=== PATIENT | male | born 1990 | race Caucasian/White ===

== ENCOUNTER 2023-08-22 12:17 | Inpatient (IN) | payer OTHER ==
[~2023-08-22] VITALS: Ht 167.6 cm; Wt 109.1 kg
[2023-08-22 13:19] LABS: BASOPHILS % (AUTO) 0.5 % (0.0-2.0); EOSINOPHILS % (AUTO) 1.8 % (1.0-6.0); HEMATOCRIT 28.8 % (41-53); HEMOGLOBIN 9.9 g/dL (13.5-17.5); LYMPHOCYTES # (AUTO) 1.2 K/uL (1.0-4.8); MEAN CORPUSCULAR HEMOGLOBIN 26.9 pg (26.0-34.0); MEAN CORPUSCULAR HGB CONC 34.4 G/dL (31.0-37.0); MEAN CORPUSCULAR VOLUME 78 fL (80-100); MONOCYTES # (AUTO) 0.5 K/uL (0.1-1.0); MONOCYTES % (AUTO) 6.5 % (2.0-9.0); NEUTROPHILS # (AUTO) 5.8 K/uL (1.8-7.7); NEUTROPHILS % (AUTO) 75.2 % (40.0-70.0); PLATELET COUNT (AUTO) 398 K/uL (150-450); RED BLOOD CELL COUNT(AUTO) 3.67 MIL/uL (4.50-5.90); RED CELL DISTRIBUTION WIDTH 16.1 % (11.5-14.5); WHITE BLOOD COUNT (AUTO) 7.7 K/uL (4.5-11.0)
[2023-08-22 13:26] LABS: ANION GAP 6 mmol/L (8-16); CALCIUM, TOTAL 8.9 mg/dL (8.8-10.5); CARBON DIOXIDE 27 mmol/L (22-29); CHLORIDE 102 mmol/L (98-107); GLOMERULAR FILTR. RATE CALC > 60 mL/min (>60); GLUCOSE,RANDOM 101 mg/dL (70-110); POTASSIUM 4.2 mmol/L (3.5-5.1); SODIUM SERUM 135 mmol/L (136-145); UREA NITROGEN, BLOOD 15 mg/dL (7-18)
[2023-08-22 13:35] LABS: ALCOHOL, BLOOD (SERUM) < 3 mg/dL (0-10)
[2023-08-22 13:41] LABS: COVID AG,FIA SOURCE NASAL SWAB
[2023-08-22 13:51] LABS: ALANINE AMINOTRANSFERASE 40 U/L (12-78); ALBUMIN 2.6 g/dL (3.4-5.0); ALKALINE PHOSPHATASE 195 U/L (46-116); ASPARTATE AMINOTRANSFERASE 22 U/L (15-37); BILIRUBIN,TOTAL 0.2 mg/dL (0.1-1.0); CREATINE KINASE, TOTAL ONLY 134 U/L (39-308); TOTAL PROTEIN, SERUM 8.3 g/dL (6.4-8.2)
[2023-08-22 14:01] LABS: SARS-COV2 (COVID) ANTIGEN,FIA Negative (Negative)
[2023-08-22] MEDS ORDERED: DIAZEPAM 5 MG/ML 2 ML SYRINGE IVP ONE (14:15)
[2023-08-22] MEDS ORDERED: DICYCLOMINE HCL 10 MG CAPSULE PO PRN (14:30)
[2023-08-22] MEDS ORDERED: METOCLOPRAMIDE HCL 5 MG/ML 2 ML VIAL IVP PRN (14:30)
[2023-08-22] MEDS ORDERED: LOPERAMIDE HCL 2 MG CAPSULE PO PRN (14:30)
[2023-08-22] MEDS ORDERED: LORazepam 2 MG/ML VIAL IVP PRN (14:30)
[2023-08-22 16:11] VITALS: BP 127/84; PULSE 81; RESP 20; TEMP 98.7
[2023-08-22] MEDS ORDERED: INFLUENZA VIRUS VACCINE QVS 2023-24 (6MO+)/PF 60 MCG/0.5 ML SYRINGE IM. ONE (17:30)
[2023-08-22] MEDS: TEMAZEPAM 15 MG CAPSULE PO SCH (20:06)
[2023-08-22 20:54] VITALS: BP 135/77; PULSE 84; RESP 18; TEMP 98.6
[2023-08-23 01:57] LABS: APPEARANCE,URINE CLEAR (CLEAR); BILIRUBIN,URINE NEGATIVE (NEGATIVE); COLOR,URINE LIGHT YELLOW (YELLOW); GLUCOSE, URINE (UA) NEGATIVE (NEGATIVE); KETONES,URINE NEGATIVE (NEGATIVE); LEUKOCYTE ESTERASE ,URINE NEGATIVE (NEGATIVE); NITRATE,URINE NEGATIVE (NEGATIVE); OCCULT BLOOD,URINE SMALL (NEGATIVE); PROTEIN,URINE NEGATIVE (NEGATIVE); SPECIFIC GRAVITIY, URINE 1.015 (1.003-1.030); UROBILINOGEN,URINE <=1.0 mg/dL (<=1.0)
[2023-08-23 02:01] LABS: AMPHET/METH SCREEN,URINE POSITIVE (NEGATIVE); BARBITURATE SCREEN, URINE NEGATIVE (NEGATIVE); BENZODIAZEPINES SCREEN,URINE POSITIVE (NEGATIVE); CANNABINOID SCREEN,URINE POSITIVE (NEGATIVE); COCAINE SCREEN,URINE NEGATIVE (NEGATIVE); METHADONE SCREEN, URINE NEGATIVE (NEGATIVE); OPIATE SCREEN,URINE NEGATIVE (NEGATIVE); PHENCYCLIDINE SCREEN,URINE NEGATIVE (NEGATIVE)
[2023-08-23 02:03] LABS: ALCOHOL, URINE DRUG SCREEN NEGATIVE (NEGATIVE)
[2023-08-23 02:18] LABS: BACTERIA,URINE None Seen /HPF (None Seen); RBC,URINE 0-2 /HPF (0-2); SQUAMOUS EPITHELIAL CELL,UR None Seen /LPF (None Seen); WBC,URINE None Seen /HPF (0-5)
[2023-08-23 04:27] VITALS: BP 131/92; PULSE 84; RESP 18; TEMP 98.3
[2023-08-23 08:48] VITALS: BP 142/89; PULSE 89; RESP 19; TEMP 97.8
[2023-08-23 16:22] VITALS: BP 130/75; PULSE 78; RESP 20; TEMP 98.7
[2023-08-23 20:01] VITALS: BP 141/85; PULSE 85; RESP 20; TEMP 98.3
[2023-08-23] MEDS: TEMAZEPAM 15 MG CAPSULE PO SCH (21:00)
[2023-08-24 04:20] VITALS: BP 129/75; PULSE 78; RESP 20; TEMP 98.4
[2023-08-24 10:19] VITALS: BP 141/86; PULSE 86; RESP 20; TEMP 97.5
[2023-08-24 20:09] VITALS: BP 143/80; PULSE 88; RESP 20; TEMP 97.6
[2023-08-24] MEDS: TEMAZEPAM 15 MG CAPSULE PO SCH (20:09)
[2023-08-25 04:34] VITALS: BP 140/75; PULSE 70; RESP 20; TEMP 98.5
[2023-08-25] MEDS: MULTIVITAMINS WITH MINERALS, THERAPEUTIC TABLET PO SCH (07:54)
[2023-08-25 08:04] VITALS: BP 140/98; PULSE 87; RESP 20; TEMP 98.4
[2023-08-25 14:28] LABS: EOSINOPHILS % (AUTO) 1.6 % (1.0-6.0); HEMATOCRIT 36.7 % (41-53); HEMOGLOBIN 12.5 g/dL (13.5-17.5); LYMPHOCYTES # (AUTO) 1.1 K/uL (1.0-4.8); LYMPHOCYTES % (AUTO) 14.5 % (22.0-44.0); MEAN CORPUSCULAR HEMOGLOBIN 26.6 pg (26.0-34.0); MEAN CORPUSCULAR VOLUME 78 fL (80-100); MONOCYTES # (AUTO) 0.4 K/uL (0.1-1.0); MONOCYTES % (AUTO) 5.1 % (2.0-9.0); NEUTROPHILS % (AUTO) 77.8 % (40.0-70.0); PLATELET COUNT (AUTO) 520 K/uL (150-450); RED BLOOD CELL COUNT(AUTO) 4.69 MIL/uL (4.50-5.90); RED CELL DISTRIBUTION WIDTH 16.1 % (11.5-14.5); WHITE BLOOD COUNT (AUTO) 7.7 K/uL (4.5-11.0)
[2023-08-25 15:15] VITALS: BP 138/86; PULSE 78; RESP 20; TEMP 97.8
[2023-08-25 19:26] VITALS: BP 128/86; PULSE 97; RESP 20; TEMP 98.2
[2023-08-25] MEDS: TEMAZEPAM 15 MG CAPSULE PO SCH (20:02)
[2023-08-26 05:09] VITALS: BP 139/86; PULSE 83; RESP 20; TEMP 97.6
[2023-08-26] MEDS: MULTIVITAMINS WITH MINERALS, THERAPEUTIC TABLET PO SCH (08:20)
[2023-08-26 08:54] VITALS: BP 128/91; PULSE 87; RESP 20; TEMP 97.5
[2023-08-26] MEDS ORDERED: ACETAMINOPHEN 325 MG TABLET PO PRN (11:15)
[2023-08-26 12:13] LABS: TROPONIN I-HIGH SENSITIVITY 36 ng/L (<76)
[2023-08-26 19:45] VITALS: BP 119/63; PULSE 95; RESP 20; TEMP 98.4
[2023-08-26] MEDS: TEMAZEPAM 15 MG CAPSULE PO SCH (20:15)
[2023-08-27 05:43] VITALS: BP 121/74; PULSE 89; RESP 20; TEMP 98.1
[2023-08-27 08:00] VITALS: BP 144/92; PULSE 85; RESP 20; TEMP 97.6
[2023-08-27] MEDS: MULTIVITAMINS WITH MINERALS, THERAPEUTIC TABLET PO SCH (08:08)
[2023-08-27 15:30] VITALS: BP 124/77; PULSE 85; RESP 20; TEMP 98
== END 2023-08-27 18:00 | DRG 897 ==
LOC: EMS 12:18 → 6S 13:22
PROVIDERS: ADMIT Internal Medicine; ATTEND Internal Medicine
DX: F11.13 Opioid abuse with withdrawal (principal); E87.1 Hypo-osmolality and hyponatremia; D64.9 Anemia, unspecified; E66.9 Obesity, unspecified; F17.210 Nicotine dependence, cigarettes, uncomplicated; Z20.822 Contact with and (suspected) exposure to COVID-19; I10 Essential (primary) hypertension; F15.10 Other stimulant abuse, uncomplicated; Z91.030 Bee allergy status; Z68.38 Body mass index [BMI] 38.0-38.9, adult
CPT/HCPCS: 80053; 80307; 81001; 82550; 84484; 85025; 90686; 93005; 99285; G0480

== ENCOUNTER 2024-06-08 22:23 | Inpatient (IN) | payer OTHER ==
[~2024-06-08] VITALS: Ht 167.6 cm; Wt 100.0 kg
[2024-06-09 00:26] LABS: ANION GAP 13 mmol/L (8-16); CALCIUM, TOTAL 9.3 mg/dL (8.8-10.5); CARBON DIOXIDE 24 mmol/L (22-29); CHLORIDE 101 mmol/L (98-107); CREATININE 0.94 mg/dL (0.60-1.30); GLOMERULAR FILTR. RATE CALC > 60 mL/min (>60); GLUCOSE,RANDOM 98 mg/dL (70-110); POTASSIUM 3.7 mmol/L (3.5-5.1); SODIUM SERUM 138 mmol/L (136-145); UREA NITROGEN, BLOOD 9 mg/dL (7-18)
[2024-06-09] MEDS ORDERED: METOCLOPRAMIDE HCL 5 MG/ML 2 ML VIAL IVP PRN (00:30)
[2024-06-09] MEDS ORDERED: LOPERAMIDE HCL 2 MG CAPSULE PO PRN (00:30)
[2024-06-09 00:39] LABS: BASOPHILS % (AUTO) 0.8 % (0.0-2.0); EOSINOPHILS % (AUTO) 1.8 % (1.0-6.0); HEMATOCRIT 40.8 % (41-53); HEMOGLOBIN 14.1 g/dL (13.5-17.5); LYMPHOCYTES # (AUTO) 2.2 K/uL (1.0-4.8); LYMPHOCYTES % (AUTO) 29.4 % (22.0-44.0); MEAN CORPUSCULAR HEMOGLOBIN 27.5 pg (26.0-34.0); MEAN CORPUSCULAR HGB CONC 34.4 G/dL (31.0-37.0); MEAN CORPUSCULAR VOLUME 80 fL (80-100); MONOCYTES # (AUTO) 0.6 K/uL (0.1-1.0); NEUTROPHILS # (AUTO) 4.5 K/uL (1.8-7.7); PLATELET COUNT (AUTO) 304 K/uL (150-450); RED BLOOD CELL COUNT(AUTO) 5.11 MIL/uL (4.50-5.90); RED CELL DISTRIBUTION WIDTH 13.3 % (11.5-14.5); WHITE BLOOD COUNT (AUTO) 7.5 K/uL (4.5-11.0)
[2024-06-09 00:56] LABS: COVID AG,FIA SOURCE NASAL SWAB
[2024-06-09 01:03] LABS: ALCOHOL, BLOOD (SERUM) < 3 mg/dL (0-10)
[2024-06-09 01:07] LABS: SARS-COV2 (COVID) ANTIGEN,FIA Negative (Negative)
[2024-06-09] MEDS: LORazepam 2 MG/ML VIAL IVP PRN (01:39)
[2024-06-09 03:30] VITALS: BP 141/91; PULSE 61; RESP 20; TEMP 98.4; O2SAT 100
[2024-06-09 08:31] VITALS: BP 152/98; PULSE 74; RESP 18; TEMP 97.8; O2SAT 95
[2024-06-09] MEDS: SODIUM CHLORIDE 0.9% 1,000 ML IV ONE (12:03)
[2024-06-09 12:22] LABS: ALCOHOL, URINE DRUG SCREEN NEGATIVE (NEGATIVE); AMPHET/METH SCREEN,URINE NEGATIVE (NEGATIVE); BARBITURATE SCREEN, URINE NEGATIVE (NEGATIVE); BENZODIAZEPINES SCREEN,URINE NEGATIVE (NEGATIVE); CANNABINOID SCREEN,URINE POSITIVE (NEGATIVE); COCAINE SCREEN,URINE NEGATIVE (NEGATIVE); METHADONE SCREEN, URINE NEGATIVE (NEGATIVE); OPIATE SCREEN,URINE NEGATIVE (NEGATIVE); PHENCYCLIDINE SCREEN,URINE NEGATIVE (NEGATIVE)
[2024-06-09 15:46] VITALS: BP 156/88; PULSE 69; RESP 18; TEMP 97.9; O2SAT 95
[2024-06-09 20:00] VITALS: BP 144/98; PULSE 83; RESP 19; TEMP 98.5; O2SAT 98
[2024-06-09] MEDS: TEMAZEPAM 15 MG CAPSULE PO SCH (20:52)
[2024-06-10 04:00] VITALS: BP 124/79; PULSE 73; RESP 18; TEMP 98.6; O2SAT 97
[2024-06-10 07:59] VITALS: BP 132/93; PULSE 77; RESP 20; TEMP 97.5; O2SAT 96
[2024-06-10] MEDS: DICYCLOMINE HCL 10 MG CAPSULE PO PRN (08:17)
[2024-06-10 12:07] LABS: EOSINOPHILS % (AUTO) 1.1 % (1.0-6.0); HEMOGLOBIN 15.4 g/dL (13.5-17.5); LYMPHOCYTES # (AUTO) 1.8 K/uL (1.0-4.8); LYMPHOCYTES % (AUTO) 22.2 % (22.0-44.0); MEAN CORPUSCULAR HEMOGLOBIN 27.5 pg (26.0-34.0); MEAN CORPUSCULAR HGB CONC 34.3 G/dL (31.0-37.0); MEAN CORPUSCULAR VOLUME 80 fL (80-100); MONOCYTES # (AUTO) 0.4 K/uL (0.1-1.0); MONOCYTES % (AUTO) 5.4 % (2.0-9.0); NEUTROPHILS # (AUTO) 5.6 K/uL (1.8-7.7); NEUTROPHILS % (AUTO) 70.3 % (40.0-70.0); PLATELET COUNT (AUTO) 309 K/uL (150-450); RED BLOOD CELL COUNT(AUTO) 5.61 MIL/uL (4.50-5.90); RED CELL DISTRIBUTION WIDTH 13.4 % (11.5-14.5); WHITE BLOOD COUNT (AUTO) 7.9 K/uL (4.5-11.0)
[2024-06-10 12:13] LABS: ANION GAP 10 mmol/L (8-16); CALCIUM, TOTAL 9.4 mg/dL (8.8-10.5); CARBON DIOXIDE 25 mmol/L (22-29); CHLORIDE 102 mmol/L (98-107); CREATININE 0.81 mg/dL (0.60-1.30); GLOMERULAR FILTR. RATE CALC > 60 mL/min (>60); GLUCOSE,RANDOM 91 mg/dL (70-110); POTASSIUM 4.3 mmol/L (3.5-5.1); SODIUM SERUM 137 mmol/L (136-145); UREA NITROGEN, BLOOD 12 mg/dL (7-18)
[2024-06-10] MEDS: LORazepam 2 MG/ML VIAL IM PRN (18:25)
[2024-06-10 19:48] VITALS: BP 138/73; PULSE 82; RESP 18; TEMP 98.2; O2SAT 96
[2024-06-10] MEDS ORDERED: METOCLOPRAMIDE HCL 5 MG TABLET PO PRN (20:00)
[2024-06-10] MEDS: BUPRENORPHINE HCL/NALOXONE HCL 8-2 MG SUBLINGUAL TABLET SL SCH (20:09)
[2024-06-11 04:27] VITALS: BP 149/86; PULSE 69; RESP 18; TEMP 98.5; O2SAT 96
[2024-06-11 07:52] LABS: ANION GAP 9 mmol/L (8-16); CALCIUM, TOTAL 9.1 mg/dL (8.8-10.5); CARBON DIOXIDE 23 mmol/L (22-29); CHLORIDE 103 mmol/L (98-107); CREATININE 0.79 mg/dL (0.60-1.30); GLOMERULAR FILTR. RATE CALC > 60 mL/min (>60); GLUCOSE,RANDOM 91 mg/dL (70-110); POTASSIUM 3.8 mmol/L (3.5-5.1); SODIUM SERUM 135 mmol/L (136-145); UREA NITROGEN, BLOOD 13 mg/dL (7-18)
[2024-06-11 08:01] LABS: BASOPHILS % (AUTO) 0.7 % (0.0-2.0); EOSINOPHILS % (AUTO) 2.5 % (1.0-6.0); HEMATOCRIT 44.8 % (41-53); HEMOGLOBIN 15.4 g/dL (13.5-17.5); LYMPHOCYTES # (AUTO) 1.8 K/uL (1.0-4.8); LYMPHOCYTES % (AUTO) 20.3 % (22.0-44.0); MEAN CORPUSCULAR HEMOGLOBIN 27.5 pg (26.0-34.0); MEAN CORPUSCULAR HGB CONC 34.3 G/dL (31.0-37.0); MEAN CORPUSCULAR VOLUME 80 fL (80-100); MONOCYTES # (AUTO) 0.5 K/uL (0.1-1.0); MONOCYTES % (AUTO) 5.6 % (2.0-9.0); NEUTROPHILS # (AUTO) 6.1 K/uL (1.8-7.7); NEUTROPHILS % (AUTO) 70.9 % (40.0-70.0); PLATELET COUNT (AUTO) 303 K/uL (150-450); RED BLOOD CELL COUNT(AUTO) 5.59 MIL/uL (4.50-5.90); RED CELL DISTRIBUTION WIDTH 13.7 % (11.5-14.5); WHITE BLOOD COUNT (AUTO) 8.6 K/uL (4.5-11.0)
[2024-06-11] MEDS: HydrOXYzine HCL 25 MG TABLET PO PRN (14:09)
[2024-06-11 16:12] VITALS: BP 135/82; PULSE 69; RESP 18; TEMP 97.7; O2SAT 98
[2024-06-11 20:00] VITALS: BP 125/79; PULSE 88; RESP 20; TEMP 98; O2SAT 96
[2024-06-12 04:00] VITALS: BP 135/75; PULSE 69; RESP 18; TEMP 98; O2SAT 96
[2024-06-12 07:10] LABS: ANION GAP 11 mmol/L (8-16); CALCIUM, TOTAL 9.1 mg/dL (8.8-10.5); CARBON DIOXIDE 24 mmol/L (22-29); CHLORIDE 103 mmol/L (98-107); CREATININE 0.82 mg/dL (0.60-1.30); GLOMERULAR FILTR. RATE CALC > 60 mL/min (>60); GLUCOSE,RANDOM 90 mg/dL (70-110); POTASSIUM 3.9 mmol/L (3.5-5.1); SODIUM SERUM 138 mmol/L (136-145); UREA NITROGEN, BLOOD 14 mg/dL (7-18)
[2024-06-12 07:41] LABS: BASOPHILS % (AUTO) 0.8 % (0.0-2.0); HEMATOCRIT 46.7 % (41-53); HEMOGLOBIN 15.9 g/dL (13.5-17.5); LYMPHOCYTES # (AUTO) 1.8 K/uL (1.0-4.8); LYMPHOCYTES % (AUTO) 24.1 % (22.0-44.0); MEAN CORPUSCULAR HEMOGLOBIN 27.6 pg (26.0-34.0); MEAN CORPUSCULAR VOLUME 81 fL (80-100); MONOCYTES # (AUTO) 0.5 K/uL (0.1-1.0); MONOCYTES % (AUTO) 6.3 % (2.0-9.0); NEUTROPHILS % (AUTO) 65.8 % (40.0-70.0); PLATELET COUNT (AUTO) 311 K/uL (150-450); RED BLOOD CELL COUNT(AUTO) 5.76 MIL/uL (4.50-5.90); RED CELL DISTRIBUTION WIDTH 13.6 % (11.5-14.5); WHITE BLOOD COUNT (AUTO) 7.6 K/uL (4.5-11.0)
[2024-06-12 07:48] VITALS: BP 132/80; PULSE 68; RESP 19; TEMP 98.5; O2SAT 100
[2024-06-12] MEDS ORDERED: HYDR-4527 PO (11:14)
== END 2024-06-12 19:20 | DRG 897 ==
LOC: EMS 22:23 → EDH 06-09 01:07 → 6S 06-09 03:09
PROVIDERS: ADMIT Internal Medicine; ATTEND Internal Medicine
PROC: HZ2ZZZZ Detoxification Services for Substance Abuse Treatment (ICD-10-PCS; principal; 2024-06-09)
DX: F11.13 Opioid abuse with withdrawal (principal); I10 Essential (primary) hypertension; Z20.822 Contact with and (suspected) exposure to COVID-19; F41.9 Anxiety disorder, unspecified; F17.210 Nicotine dependence, cigarettes, uncomplicated; Z91.030 Bee allergy status
CPT/HCPCS: 80048; 80307; 85025; 99285; G0480; J2060; J7030

== ENCOUNTER 2024-07-02 21:10 | Inpatient (IN) | payer OTHER ==
[~2024-07-02] VITALS: Ht 175.3 cm; Wt 95.5 kg
[~2024-07-02 21:10] MED LIST: HYDR-4527 PO
[2024-07-03] MEDS ORDERED: BUPR1FIL3 SL (01:50)
[2024-07-03] MEDS ORDERED: BUPRENORPHINE HCL/NALOXONE HCL 8-2 MG SUBLINGUAL TABLET SL ONE (02:00)
[2024-07-03] MEDS ORDERED: ACET-2247 PO (02:08)
[2024-07-03] MEDS ORDERED: LISI-894 PO (02:08)
[2024-07-03] MEDS ORDERED: ONDA-104 PO (02:08)
[2024-07-03] MEDS: LORazepam 2 MG TABLET PO ONE (02:24)
[2024-07-03] MEDS: HydrOXYzine PAMOATE 50 MG CAPSULE PO ONE (02:24)
[2024-07-03] MEDS ORDERED: ONDANSETRON HCL 4 MG/2 ML VIAL IVP PRN (02:45)
[2024-07-03] MEDS: SODIUM CHLORIDE 0.9% 1,000 ML IV ONE (02:45)
[2024-07-03] MEDS ORDERED: ACETAMINOPHEN 325 MG TABLET PO PRN (02:45)
[2024-07-03] MEDS ORDERED: MAGNESIUM HYDROXIDE SUSPENSION 30 ML UDCUP PO PRN (02:45)
[2024-07-03] MEDS ORDERED: ZOLPIDEM TARTRATE 5 MG TABLET PO PRN (02:45)
[2024-07-03 06:35] LABS: APPEARANCE,URINE CLEAR (CLEAR); BILIRUBIN,URINE NEGATIVE (NEGATIVE); COLOR,URINE LIGHT YELLOW (YELLOW); GLUCOSE, URINE (UA) NEGATIVE (NEGATIVE); KETONES,URINE NEGATIVE (NEGATIVE); LEUKOCYTE ESTERASE ,URINE TRACE (NEGATIVE); NITRATE,URINE NEGATIVE (NEGATIVE); OCCULT BLOOD,URINE NEGATIVE (NEGATIVE); PH,URINE 5.5 (5.0-8.0); PROTEIN,URINE NEGATIVE (NEGATIVE); SPECIFIC GRAVITIY, URINE 1.025 (1.003-1.030); UROBILINOGEN,URINE <=1.0 mg/dL (<=1.0)
[2024-07-03 06:36] VITALS: BP 127/85; PULSE 83; RESP 19; TEMP 97.8; O2SAT 97
[2024-07-03 06:40] LABS: ALCOHOL, URINE DRUG SCREEN NEGATIVE (NEGATIVE); AMPHET/METH SCREEN,URINE NEGATIVE (NEGATIVE); BARBITURATE SCREEN, URINE NEGATIVE (NEGATIVE); BENZODIAZEPINES SCREEN,URINE NEGATIVE (NEGATIVE); CANNABINOID SCREEN,URINE POSITIVE (NEGATIVE); COCAINE SCREEN,URINE NEGATIVE (NEGATIVE); METHADONE SCREEN, URINE NEGATIVE (NEGATIVE); OPIATE SCREEN,URINE NEGATIVE (NEGATIVE); PHENCYCLIDINE SCREEN,URINE NEGATIVE (NEGATIVE)
[2024-07-03 06:48] LABS: BACTERIA,URINE Few /HPF (None Seen); RBC,URINE None Seen /HPF (0-2)
[2024-07-03 07:24] LABS: PH,URINE DRUG SCREEN 5.5 (5.0-8.0)
[2024-07-03 08:29] VITALS: BP 118/68; PULSE 71; RESP 19; TEMP 98; O2SAT 97
[2024-07-03] MEDS: FAMOTIDINE 20 MG TABLET PO SCH (09:21)
[2024-07-03] MEDS: LORazepam 2 MG/ML VIAL IVP PRN (09:23)
[2024-07-03 09:31] LABS: BASOPHILS % (AUTO) 0.7 % (0.0-2.0); HEMATOCRIT 42.3 % (41-53); HEMOGLOBIN 14.1 g/dL (13.5-17.5); LYMPHOCYTES # (AUTO) 1.9 K/uL (1.0-4.8); LYMPHOCYTES % (AUTO) 29.4 % (22.0-44.0); MEAN CORPUSCULAR HEMOGLOBIN 27.3 pg (26.0-34.0); MEAN CORPUSCULAR HGB CONC 33.4 G/dL (31.0-37.0); MEAN CORPUSCULAR VOLUME 82 fL (80-100); MONOCYTES # (AUTO) 0.5 K/uL (0.1-1.0); MONOCYTES % (AUTO) 8.1 % (2.0-9.0); NEUTROPHILS # (AUTO) 3.7 K/uL (1.8-7.7); NEUTROPHILS % (AUTO) 57.8 % (40.0-70.0); PLATELET COUNT (AUTO) 240 K/uL (150-450); RED BLOOD CELL COUNT(AUTO) 5.18 MIL/uL (4.50-5.90); RED CELL DISTRIBUTION WIDTH 15.1 % (11.5-14.5); WHITE BLOOD COUNT (AUTO) 6.4 K/uL (4.5-11.0)
[2024-07-03 09:39] LABS: ANION GAP 11 mmol/L (8-16); CALCIUM, TOTAL 8.8 mg/dL (8.8-10.5); CARBON DIOXIDE 25 mmol/L (22-29); CHLORIDE 103 mmol/L (98-107); CREATININE 0.75 mg/dL (0.60-1.30); GLOMERULAR FILTR. RATE CALC > 60 mL/min (>60); GLUCOSE,RANDOM 96 mg/dL (70-110); POTASSIUM 3.8 mmol/L (3.5-5.1); SODIUM SERUM 139 mmol/L (136-145); UREA NITROGEN, BLOOD 15 mg/dL (7-18)
[2024-07-03 09:44] LABS: ALCOHOL, BLOOD (SERUM) < 3 mg/dL (0-10)
[2024-07-03] MEDS: HydrOXYzine HCL 25 MG TABLET PO SCH (16:00)
[2024-07-03 18:06] VITALS: BP 145/96; PULSE 77; RESP 18; TEMP 97.2; O2SAT 95
[2024-07-03] MEDS: BUPRENORPHINE HCL/NALOXONE HCL 8-2 MG SUBLINGUAL TABLET SL SCH (18:39)
[2024-07-03 20:11] VITALS: BP 122/73; PULSE 76; RESP 19; TEMP 98.3; O2SAT 95
[2024-07-04 04:06] LABS: HEPATITIS C AB (EIA) Reactive (Non Reactive)
[2024-07-04 04:10] VITALS: BP 132/86; PULSE 71; RESP 19; TEMP 97.9; O2SAT 96
[2024-07-04 09:03] VITALS: BP 120/61; PULSE 58; RESP 20; TEMP 98; O2SAT 97
[2024-07-06 14:06] LABS: HEPATITIS C RT-PCR,QNT HCV Not Detected IU/mL
== END 2024-07-04 18:20 | DRG 897 ==
LOC: EMS 21:10 → EDH 07-03 02:38 → 6S 07-03 06:10
PROVIDERS: ADMIT Internal Medicine; ATTEND Internal Medicine
DX: F11.23 Opioid dependence with withdrawal (principal); E66.9 Obesity, unspecified; F41.9 Anxiety disorder, unspecified; I10 Essential (primary) hypertension; Z87.891 Personal history of nicotine dependence; Z91.030 Bee allergy status; Z68.31 Body mass index [BMI] 31.0-31.9, adult
CPT/HCPCS: 80048; 80307; 81001; 85025; 86803; 87086; 87186; 87340; 87522; 99285; G0480; J2060; J7030